=== PATIENT | female | born 1960 | race Caucasian/White ===

== ENCOUNTER 2021-04-11 13:14 | Emergency (ER) | payer BC, OTHER ==
[2021-04-11] MEDS ORDERED: METHYLPREDNISOLONE 125 MG INJ ONE (14:16)
[2021-04-11] MEDS ORDERED: NA CHLORIDE 0.9% 500 ML ONE (14:17)
[2021-04-11] MEDS ORDERED: DIPHENHYDRAMINE 50 MG/ML VIAL ONE (14:17)
[2021-04-11] MEDS ORDERED: FAMOTIDINE 20 MG/2 ML VIAL IV ONE (14:17)
[2021-04-11] MEDS ORDERED: PROMETH/COD 6.25/10MG SYRUP 5ML ONE (14:26)
--- NOTE | 2021-04-11 15:09 | EDPHYS ---
Physician Documentation [facility] Name: Nelly Segovia Age: 60 yrs Sex: Female : 1960 Arrival Date: 04/11/2021 Time: 13:14 Bed 14 Private MD: Vikas Groves B ED Physician Claudio Hagan HPI: 04/11 13:55 This 60 yrs old Female presents to ER via Ambulatory with complaints of cp Allergic Reaction, Facial Swelling, Headache. 13:55 The patient presents with swelling to left side of face and neck. cp 13:55 Onset: The symptoms/episode began/occurred today. Associated signs and symptoms: cp Pertinent negatives: abdominal pain, dysphagia, fever, hives, shortness of breath, vomiting. Possible causes: ate pork potsticker. At home the patient or guardian has treated the symptoms with Benadryl. Severity of symptoms: in the emergency department the symptoms are worse mildly. 13:55 Patient reports noticing left side of face and neck swelling at around 1230 today after cp eating pork potsticker for lunch at around 1215. Historical: - Allergies: 13:31 Codeine; kg 13:31 Penicillins; kg 13:31 Darvocet-N 100; kg 13:31 Sulfa (Sulfonamide Antibiotics); kg - PMHx: 13:31 Pneumonia; kg - PSHx: 13:31 Breast reduction; Cholecystectomy; Tonsillectomy; kg - Immunization history:: Adult Immunizations not up to date, Client reports having NOT received the Covid vaccine. - Social history:: Smoking status: Patient denies any tobacco usage or history of. Patient uses alcohol, occasionally. ROS: 14:00 Skin: Positive for swelling, of the left side of face and neck. cp 14:00 Eyes: Negative for injury, pain, redness, and discharge. cp 14:00 Constitutional: Negative for body aches, chills, fever, poor PO intake. 14:00 ENT: Negative for drainage from ear(s), ear pain, sore throat, difficulty swallowing, difficulty handling secretions, hoarseness. 14:00 Cardiovascular: Negative for chest pain, palpitations. 14:00 Respiratory: Negative for cough, shortness of breath, wheezing. 14:00 Abdomen/GI: Negative for abdominal pain, nausea, vomiting, and diarrhea. 14:00 Neuro: Positive for headache, Negative for altered mental status, weakness. 14:00 All other systems are negative. Exam: 14:10 Constitutional: The patient appears in no acute distress, alert, awake, cp non-diaphoretic, non-toxic, well developed, well nourished. 14:10 Head/face: Exam is negative for gross swelling, edema to left side of face. 14:10 Eyes: Periorbital structures: appear normal, Pupils: equal, round, and reactive to light and accomodation, Extraocular movements: intact throughout, Conjunctiva: normal, no exudate, no injection, Sclera: no appreciated abnormality, Lids and lashes: appear normal, bilaterally. 14:10 ENT: External ear(s): are unremarkable, Ear canal(s): are normal, clear, TM's: dullness, bilaterally, Nose: is normal, Mouth: Lips: moist, Oral mucosa: pink and intact, moist, Posterior pharynx: Airway: no evidence of obstruction, patent. 14:10 Neck: External neck: swelling, is not appreciated, ROM/movement: is normal, is supple, without pain, no range of motions limitations. 14:10 Chest/axilla: Inspection: normal, Palpation: is normal, no crepitus, no tenderness. 14:10 Cardiovascular: Rate: normal, Rhythm: regular. 14:10 Respiratory: the patient does not display signs of respiratory distress, Respirations: normal, no use of accessory muscles, no retractions, labored breathing, is not present, Breath sounds: are clear throughout, no decreased breath sounds, no stridor, no wheezing. 14:10 Abdomen/GI: Exam negative for discomfort, distension, guarding, Inspection: abdomen appears normal. 14:10 Skin: no rash present. 14:10 Neuro: Orientation: to person, place \T\ time. Mentation: is normal. Vital Signs: 13:24 BP 128 / 71; Pulse 76; Resp 18 S; Temp 98.0(O); Pulse Ox 96% on R/A; Weight 87.82 kg kg (M); Height 5 ft. 1 in. (154.94 cm) (R); Pain 3/10; 13:24 Body Mass Index 36.58 (87.82 kg, 154.94 cm) kg MDM: 13:53 Patient medically screened. cp 14:00 Differential diagnosis: anaphylaxis, angioedema, urticaria, respiratory distress. cp 14:58 ED course: VSS. Patient reports symptoms improved. cp 15:08 Data reviewed: vital signs, nurses notes, and as a result, I will discharge patient. 15:08 Counseling: I had a detailed discussion with the patient and/or guardian regarding: the cp historical points, exam findings, and any diagnostic results supporting the discharge/admit diagnosis, to return to the emergency department if symptoms worsen or persist or if there are any questions or concerns that arise at home. Response to treatment: the patient's symptoms have markedly improved after treatment, and as a result, I will discharge patient. 04/11 13:53 Order name: IV; Complete Time: 13:55 cp Administered Medications: 14:02 Drug: Pepcid (famotidine) 20 mg Route: IVP; Site: right hand; tr6 14:02 Drug: NS 0.9% 500 ml Route: IV; Rate: bolus; Site: right hand; tr6 14:03 Drug: SOLU-Medrol (methylPrednisoLONE) 125 mg Route: IVP; Site: right hand; tr6 14:03 Drug: Benadryl (diphenhydrAMINE) 50 mg Route: IVP; Site: right hand; tr6 Disposition: 15:30 Chart complete. Disposition: 04/11/21 15:09 Discharged to Home. Impression: Food allergy status. - Condition is Stable. - Discharge Instructions: Substitutions for Common Food Allergies. - Prescriptions for Prednisone 20 mg Oral Tablet - take 3 tablet by ORAL route once daily for 5 days; 15 tablet. Pepcid 20 mg Oral Tablet - take 1 tablet by ORAL route every 12 hours for 5 days; 10 tablet. - Medication Reconciliation Form, Thank You Letter, Antibiotic Education, Prescription Opioid Use form. - Follow up: Private Physician; When: 2 - 3 days; Reason: Recheck today's complaints. - Problem is new. - Symptoms have improved. Addendum: 04/14/2021 11:07 Co-signature as Attending Physician, Claudio Hagan MD I agree with the assessment and k dr plan of care. Signatures: Claudio Hagan MD MD [facility] Andrzej Grider PA PA Nellie Benavidez RN RN tr6 Nury Costa RN RN kg Corrections: (The following items were deleted from the chart) 04/11 15:28 15:09 04/11/2021 15:09 Discharged to Home. Impression: Food allergy status. Condition tr6 is Stable. Forms are Medication Reconciliation Form, Thank You Letter, Antibiotic Education, Prescription Opioid Use. Follow up: Private Physician; When: 2 - 3 days; Reason: Recheck today's complaints. Problem is new. Symptoms have improved. cp
--- NOTE | 2021-04-11 15:09 | ER ---
Nurse's Notes [facility] Name: Nelly Segovia Age: 60 yrs Sex: Female : 1960 Arrival Date: 04/11/2021 Time: 13:14 Bed 14 Private MD: Vikas Groves B Diagnosis: Food allergy status Presentation: 04/11 13:24 Chief complaint: Patient states: Pt stated, " I ate lunch at 12:15, I ate pork pot kg stickers which Sandee had before with no problem but, at 12:30 my face started swelling and tight on the left side, then the left side of my tounge started felling tingly and swelling. I took Benadryl 25 mg and it took a lot of the swelling down but now its coming back and my tounge hurts and the base of it and I'm having shortness of breath and just feeling weird". Coronavirus screen: Client denies travel out of the [place] in the last 14 days. At this time, unable to obtain information related to travel outside the [place] At this time, the client does not indicate any symptoms associated with coronavirus-19. Ebola Screen: Patient negative for fever greater than or equal to 101.5 degrees Fahrenheit, and additional compatible Ebola Virus Disease symptoms Patient denies exposure to infectious person. Patient denies travel to an Ebola-affected area in the 21 days before illness onset. Onset: The symptoms/episode began/occurred acutely, at 12:30. Anaphylaxis evaluation, the patient reports or I have noted the following symptoms which indicate a significant risk of anaphylaxis: shortness of breath . The patient has been moved to a treatment room and the charge nurse or attending physician has been notified. Initial Sepsis Screen: Does the patient meet any 2 criteria? No. Patient's initial sepsis screen is negative. Does the patient have a suspected source of infection? No. Patient's initial sepsis screen is negative. Risk Assessment: Do you want to hurt yourself or someone else? Patient reports no desire to harm self or others. Onset of symptoms was April 11, 2021 at 12:30. 13:24 Method Of Arrival: Ambulatory kg 13:24 Acuity: DOMENICO 3 kg Historical: - Allergies: 13:31 Codeine; kg 13:31 Penicillins; kg 13:31 Darvocet-N 100; kg 13:31 Sulfa (Sulfonamide Antibiotics); kg - PMHx: 13:31 Pneumonia; kg - PSHx: 13:31 Breast reduction; Cholecystectomy; Tonsillectomy; kg - Immunization history:: Adult Immunizations not up to date, Client reports having NOT received the Covid vaccine. - Social history:: Smoking status: Patient denies any tobacco usage or history of. Patient uses alcohol, occasionally. Screenin:03 Abuse screen: Denies threats or abuse. Denies injuries from another. Nutritional tr6 screening: No deficits noted. Tuberculosis screening: No symptoms or risk factors identified. Fall Risk None identified. Assessment: 13:50 General: Appears in no apparent distress. comfortable, Behavior is calm, cooperative, tr6 appropriate for age. Pain: Complains of pain in states her face and tongue feel tingly. Neuro: No deficits noted. Cardiovascular: No deficits noted. Respiratory: No deficits noted. Airway is patent Respiratory effort is even, unlabored, Breath sounds are clear. GI: No deficits noted. : No deficits noted. EENT: Reports. Derm: Skin is red, chest is red, pt states she was sunburned recently. Musculoskeletal: No deficits noted. 14:46 Reassessment: GRANT Grider at bedside to reassess pt. tr6 15:17 Reassessment: pt reports that she is feeling better. tr6 Vital Signs: 13:24 BP 128 / 71; Pulse 76; Resp 18 S; Temp 98.0(O); Pulse Ox 96% on R/A; Weight 87.82 kg kg (M); Height 5 ft. 1 in. (154.94 cm) (R); Pain 3/10; 13:24 Body Mass Index 36.58 (87.82 kg, 154.94 cm) kg ED Course: 13:14 Patient arrived in ED. am2 13:15 Vikas Groves MD is Private Physician. am2 13:30 Triage completed. kg 13:46 Nellie Benavidez RN is Primary Nurse. tr6 13:50 Inserted saline lock: 22 gauge in right hand, using aseptic technique. tr6 13:52 Andrzej Grider PA is PHCP. cp 13:52 Claudio Hagan MD is Attending Physician. cp 14:03 No apparent distress. Resting quietly. Awaiting re-evaluation by ER provider. tr6 14:03 No provider procedures requiring assistance completed. Inserted. tr6 14:03 Patient has correct armband on for positive identification. Bed in low position. Call tr6 light in reach. Side rails up X2. 15:18 IV discontinued, intact, bleeding controlled, No redness/swelling at site. Pressure tr6 dressing applied. Administered Medications: 14:02 Drug: Pepcid (famotidine) 20 mg Route: IVP; Site: right hand; tr6 14:02 Drug: NS 0.9% 500 ml Route: IV; Rate: bolus; Site: right hand; tr6 14:03 Drug: SOLU-Medrol (methylPrednisoLONE) 125 mg Route: IVP; Site: right hand; tr6 14:03 Drug: Benadryl (diphenhydrAMINE) 50 mg Route: IVP; Site: right hand; tr6 Outcome: 15:09 Discharge ordered by MD. [place] 15:17 Discharged to home ambulatory. tr6 15:17 Condition: good 15:17 Discharge instructions given to patient, Instructed on discharge instructions, follow up and referral plans. safety practices, Demonstrated understanding of instructions, follow-up care, medications. 15:21 Prescriptions given X 2. tr6 15:28 Patient left the ED. tr6 Signatures: Andrzej Grider PA PA cp Rizwana Porras am2 Nellie Benavidez, RN RN tr6 Nury Costa RN RN kg Corrections: (The following items were deleted from the chart) 13:32 13:24 BP 128 / 71; Pulse 76bpm; Resp 18bpm; Spontaneous; Pulse Ox 96% RA; Temp 98.0F kg Oral; 87.82 kg Measured; Height 5 ft. 1 in. Reported; BMI: 36.5; kg
[2021-04-11 15:36] VITALS: BP 128/71; TEMP 98; O2SAT 96
== END 2021-04-11 15:28 | disposition home or self-care (01) ==
LOC: ER 13:14
DX: T78.49XA Other allergy, initial encounter (principal)
CPT/HCPCS: 96375; 96374; 99283; J1200; J7040; J2930

== ENCOUNTER 2021-10-31 11:05 | Emergency (ER) | payer OTHER ==
--- NOTE | 2021-10-31 13:22 | ER ---
Nurse's Notes [facility] Name: Nelly Segovia Age: 60 yrs Sex: Female : 1960 Arrival Date: 10/31/2021 Time: 11:07 Bed Waiting Private MD: Diagnosis: Presentation: 10/31 12:03 Note triage callx1 pt not in lobby. eo2 12:17 Note second call for triage, no answer. eo2 12:38 Note third call for triage, no answer. eo2 ED Course: 11:07 Patient arrived in ED. ds1 Administered Medications: No medications were administered Outcome: 13:21 Patient left the ED. rojo Signatures: Tracee Torres ds1 Kasey Trinidad, RN RN rojo Mary Ellen Jones RN RN eo2
== END 2021-10-31 13:21 | disposition left against medical advice (07) ==
LOC: ER 11:05
DX: Z02.89 Encounter for other administrative examinations (principal)